=== PATIENT | female | born 1995 | race Caucasian/White ===

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

== ENCOUNTER 2017-04-26 09:06 | Inpatient (IN) | payer BC, MEDICAID ==
[2017-04-26] MEDS ORDERED: RINGER'S SOLUTION,LACTATED 1,000 ML IV PRN (16:33)
[2017-04-26] MEDS ORDERED: TERBUTALINE SULFATE 1 MG/ML VIAL SC ONE ×2 (16:33→18:33)
[2017-04-26] MEDS ORDERED: DEXTROSE 5%-LACTATED RINGERS 1,000 ML IV PRN (16:33)
[2017-04-26] MEDS ORDERED: PENICILLIN G POTASSIUM 5 MILLIONUNT in DEXTROSE 5 % IN WATER 100 ML IV ONE ×2 (17:00)
[2017-04-26] MEDS: BETAMETH ACET/BETAMET SOD PHOS 6 MG/ML VIAL IM SCH (17:07)
[2017-04-26] MEDS: PENICILLIN G POTASSIUM 2.5 MILLIONUNT in DEXTROSE 5 % IN WATER 100 ML IV SCH ×2 (21:07)
[2017-04-27] MEDS: PENICILLIN G POTASSIUM 2.5 MILLIONUNT in DEXTROSE 5 % IN WATER 100 ML IV SCH ×12 (00:46→22:10)
[2017-04-27 01:44] LABS: Cocaine Ur Negative (NEGATIVE); Urine Barbiturate Negative (NEGATIVE); Urine Benzodiazepines Negative (NEGATIVE); Urine Opiates Negative (NEGATIVE); Urine PCP Negative (NEGATIVE); Urine THC Negative (NEGATIVE)
[2017-04-27] MEDS ORDERED: CALCIUM CARBONATE 500 MG TAB.CHEW PO PRN (04:13)
--- NOTE | 2017-04-27 16:14 | PN ---
Progess Note - Interim Narrative: 04/27/17 15:59 HD#1 34 2/7 wk di/di twins, PTL Patient denies contractions, LOF, vaginal d/c, bleeding, or decreased movement Gravid uterus - NT Fetus A - FHT 125, NST reactive Fetus B - FHT 125, NST reactive Contractions - occasional Cervix - deferred Impression: 1. 34 2/7 wk Di/Di Twin 2. Labor - stable, s/p BTMZ x 1 (next dose due 1700), PCN IV for GBS prophylaxis (cx pending) Plan: 1. Continue NST q shift 2. Increase activity, advance diet. If remains stable through night will d/c home in am on PTL precautions.
[2017-04-27] MEDS: BETAMETH ACET/BETAMET SOD PHOS 6 MG/ML VIAL IM SCH (16:42)
[2017-04-28] MEDS: PENICILLIN G POTASSIUM 2.5 MILLIONUNT in DEXTROSE 5 % IN WATER 100 ML IV SCH ×4 (02:41→05:27)
[2017-04-28 09:40] VITALS: BP 127/59
--- NOTE | 2017-04-28 16:52 | PN ---
Subjective - Date and Time Seen Date: 04/28/17 Time: 16:49 Objective - Vitals Vitals: Last Vital Signs Temp 37.0 C 04/28/17 09:05 Pulse 65 04/28/17 09:05 Resp 16 04/28/17 09:05 BP 127/59 04/28/17 09:05 Pulse Ox 98 04/28/17 09:05 Patient has remained stable throughout her hospital stay. Contractions have mostly resolved. Cervix has remained unchanged at 3-4/75/-1. Nonstress test for both infants reactive with no decelerations. Patient has received betamethasone 2 doses. GBS culture done on admission was negative. Impression: 34 3/7 week intrauterine with dichorionic diamniotic twins , labor-resolved Plan: Discharge home with labor precautions. No nipple stimulation or sex. Follow-up in office in 1 week.
== END 2017-04-28 09:30 | disposition home or self-care (01) | DRG 778 ==
LOC: OB 09:06 → OBSVTOIN 04-27 09:06
PROVIDERS: ADMIT Obstetrics & Gynecology; ATTEND Obstetrics & Gynecology
PROC: 4A1HXCZ Monitoring of Products of Conception, Cardiac Rate, External Approach (ICD-10-PCS; principal; 2017-04-27)
DX: O60.03 Preterm labor without delivery, third trimester (principal); O30.043 Twin pregnancy, dichorionic/diamniotic, third trimester; O99.013 Anemia complicating pregnancy, third trimester; D50.8 Other iron deficiency anemias; Z3A.34 34 weeks gestation of pregnancy
CPT/HCPCS: 59025; 80307; G0378; G0379

== ENCOUNTER 2017-04-29 18:22 | Observation (INO) | payer BC, MEDICAID ==
[2017-04-29] MEDS ORDERED: DEXTROSE 5%-LACTATED RINGERS 1,000 ML IV PRN (18:48)
[2017-04-29] MEDS ORDERED: TERBUTALINE SULFATE 1 MG/ML VIAL ONE (19:17)
[2017-04-29] MEDS ORDERED: TERBUTALINE SULFATE 1 MG/ML VIAL SC ONE (19:39)
--- NOTE | 2017-04-30 13:16 | DS ---
(1) premature rupture of membranes Problem: Acute Qualifiers: PROM onset of labor timing: onset of labor within 24 hours of rupture Qualified Code(s): O42.019 - premature rupture of membranes, onset of labor within 24 hours of rupture, unspecified trimester Description of Stay: 22 yo at 34 3/7 wks with diamniotic/dichorionic twin admitted to & for PPROM. Within 30 min of admission, patient began having contractions every 5 min with increasing intensity. She had been recently admitted and discharged for PTL just 3 days earlier. During that admission she was determined to be GBS negative and received 2 doses of betamethasone. Upon arrival to [facility] her cervix was 4/90/0 with gross ROM clear fluid. Because of her gestational age, it was determined to attempt transport to [facility] if possible for NICU care of infants. Upon arrival of trasportation she was dilated to 4-5/ 90/+1. She was given a dose of terbutaline 0/25mg SQ and transported via ambulance to [facility]. Accepting physician was Dr. Eliazar Ron. Procedures Performed: see notes below - NST, pH test of amniotic fluid [facility] Condition: Stable Discharge Activity: Other - Bedrest Discharge Diet: NPO Consultation Done:: Dr Eliazar Ron Complete Home Medications List: Complete Home Medication List: Vits96/Iron Fum/Folic [ S] 1 tab PO DAILY 10/25/16 Ascorbic Acid [Vitamin C] 500 mg PO DAILY 04/28/17 Calcium Carbonate [Tums] 500 mg PO QID PRN tab.chew 04/28/17 Ferrous Sulfate [Iron] 325 mg PO DAILY 04/28/17 Folic Acid 1 mg PO DAILY 04/28/17
== END 2017-04-29 20:00 | disposition short-term general hospital (02) ==
LOC: OBCLINIC 18:22 → OB 18:23 → OBCLINIC 19:30
PROVIDERS: ADMIT Obstetrics & Gynecology; ATTEND Obstetrics & Gynecology
DX: O42.013 Preterm premature rupture of membranes, onset of labor within 24 hours of rupture, third trimester (principal); O30.043 Twin pregnancy, dichorionic/diamniotic, third trimester; O99.013 Anemia complicating pregnancy, third trimester; Z3A.34 34 weeks gestation of pregnancy
CPT/HCPCS: 59025; 96372; G0378